=== PATIENT | male | born 1950 | race Caucasian/White ===

== ENCOUNTER 2016-09-06 07:43 | Day surgery (SDC) | payer BC ==
[2016-09-06] MEDS: Lactated Ringers 1,000 ML IV SCH ×3 (08:39→18:38)
[2016-09-06] MEDS ORDERED: Ketorolac 30 MG/ML SDV IVPUSH ONE (09:00)
[2016-09-06] MEDS ORDERED: Dexamethasone 4 MG/ML 5 ML MDV IVPUSH ONE (09:00)
[2016-09-06] MEDS ORDERED: Ondansetron 4 MG/2 ML SDV IVPUSH ONE (09:00)
[2016-09-06] MEDS ORDERED: HYDROmorphone 2 MG/ML SDV IV ONE (09:00)
[2016-09-06] MEDS ORDERED: Lactated Ringers 1,000 ML IV ONE (09:00)
[2016-09-06] MEDS ORDERED: fentaNYL 100 MCG/2 ML SDV IV ONE (09:00)
[2016-09-06] MEDS ORDERED: Midazolam 1 MG/ML 2 ML SDV IV ONE (09:00)
[2016-09-06] MEDS ORDERED: Rocuronium 50 MG/5 ML Vial IV ONE (09:00)
[2016-09-06] MEDS ORDERED: Succinylcholine 200 MG/10 ML MDV IV ONE (09:00)
[2016-09-06] MEDS ORDERED: Neostigmine Methylsulfate 1 MG/ML 5 ML Syringe IV ONE (09:00)
[2016-09-06] MEDS ORDERED: ceFAZolin 2 GM in Sodium Chloride 0.9% 100 ML IV ONE (09:00)
[2016-09-06] MEDS ORDERED: Propofol 200 MG/20 ML SDV IV ONE (09:00)
[2016-09-06] MEDS ORDERED: Lidocaine 1% with EPINEPHrine 1:100,000 20 ML MDV INFILT ONE (09:39)
[2016-09-06] MEDS ORDERED: Bupivacaine 0.5% 30 ML SDV INFILT ONE (09:40)
[2016-09-06] MEDS ORDERED: fentaNYL 100 MCG/2 ML SDV IVPUSH PRN ×2 (10:10→10:15)
[2016-09-06] MEDS ORDERED: Promethazine 6.25 MG in Sodium Chloride 0.9% 50 ML IV PRN (10:10)
[2016-09-06] MEDS ORDERED: HYDROmorphone 2 MG/ML SDV IVPUSH PRN (10:10)
--- NOTE | 2016-09-06 10:32 | PCM.OPNOTE ---
- General Post-Op/Procedure Note Date of Surgery/Procedure: 09/06/16 Operative Procedure(s): incisional hernia repair Findings: ventral hernias multiple punctate lesions Pre Op Diagnosis: incisional hernia Post-Op Diagnosis: Same Anesthesia Technique: General ET tube, Local (9 ml 1 % lido with epi/0.5% marcaine) Primary Surgeon: Corbin Almaraz Anesthesia Provider: Gordo Mckeon Pathology: abd wall EBL in mLs: 10 Complications: None Condition: Good Free Text/Narrative:: see dictation
[2016-09-06] MEDS ORDERED: Morphine 4 MG/ML Syringe IVPUSH PRN (10:42)
[2016-09-06] MEDS ORDERED: Ondansetron 4 MG/2 ML SDV IVPUSH PRN (11:59)
[2016-09-06] MEDS: Acetaminophen/HYDROcodone 325-5 MG Tab PO PRN ×2 (12:18→17:29)
--- NOTE | 2016-09-06 14:30 | OR ---
DATE OF OPERATION: 09/06/2016 SURGEON: Corbin Almaraz MD PROCEDURE PERFORMED: Incisional hernia repair. PREOPERATIVE DIAGNOSIS: Incisional hernia. POSTOPERATIVE DIAGNOSIS: Incisional hernia. INDICATIONS FOR PROCEDURE: This is a 66-year-old white male who was referred with a small reducible hernia in the area of the umbilicus. This appears to be an incisional hernia. The patient had a history of a ruptured appendix, which was removed via midline incision and due to the infection had delayed primary closure. Has a wide open wound with covered fascia over the skin as well as a small hernia down in the right lower quadrant. He was offered and accepted repair. FINDINGS: The patient's observable hernia was approximately 1 cm in diameter, however, along the lateral edge of the right side, there were several small Danish cheese-like lesions. The hernia itself was repaired with a 13.8 x [address] hernia patch, reference number [id number], lot number [id number], with an expiration date of 07/06/2018. Total of 9 mL of a 1:1 mixture of 1% lidocaine with epinephrine and 0.5% Marcaine was used to infiltrate our incision. DESCRIPTION OF PROCEDURE: After an excellent general anesthetic was administered, the patient was prepped and draped in the usual sterile manner. 9 mL of a 1:1 mixture of 1% lidocaine with epinephrine and 0.5% Marcaine was used to infiltrate the entire edge of the old incision sites. We started at the level of the palpable incisional hernia, where an incision was made just medial to the hernia edge. Careful dissection was carried out, and the umbilicus was mobilized. Palpable defect was identified, and the hernia sac was dissected free. On inserting the finger into the anterior abdominal wall, there were some very minor adhesions, and we could feel some defects. At this point, I made an incision circumferentially around the previous incision site and then starting superiorly, we excised the skin and scar tissue off the anterior abdominal wall and passed the specimen off the field. The midline scar tissue/fascia was then incised. The adhesed omentum was then taken down with a LigaSure and gave us a nice flat smooth surface on which to elicit our repair. Again, two additional hernias were noted as well on the right side and then a small hernia was noted on the left. We did at this time also mobilize the skin and subcu fat off the fascia to aid in closure. The upper half of the incision was then closed with a running #1 Prolene to reapproximate the fascia. The hernia patch was then inserted and then tacked to the anterior abdominal wall using a Stat Tacker superiorly and inferiorly. Then, the inferior aspect of the incision was closed with a running #1 Prolene as well. The abdominal wound was then irrigated. The subcu fat was then approximated with a running 3-0 Vicryl. This was done after tacking the umbilicus to the anterior abdominal wall with a [id number] 0 Vicryl. [place] were used to then close the skin. Needle, sponge, and instrument counts were reported as correct. The patient was taken to recovery room in good condition having tolerated the procedure well. /[id number] /CHANTALL
[2016-09-06] MEDS: Ketorolac 30 MG/ML SDV IVPUSH SCH ×2 (15:43→21:32)
[2016-09-06] MEDS ORDERED: Acetaminophen/HYDROcodone 325-5 MG Tab PO PRN (17:56)
[2016-09-07] MEDS: Lactated Ringers 1,000 ML IV SCH (02:44)
[2016-09-07] MEDS: Ketorolac 30 MG/ML SDV IVPUSH SCH ×2 (03:59→09:39)
[2016-09-07 07:18] VITALS: BP 134/86
--- NOTE | 2016-09-07 09:19 | PCM.SURGPN ---
- General Info Date of Service: 09/07/16 Date of Surgery/Procedure: 09/06/16 POD#: 1 Post-Op Diagnosis: incisional hernia Functional Status: Reports: pain controlled, tolerating diet, ambulating, urinating. Denies: new symptoms - Review of Systems Pulmonary: Reports: no symptoms Cardiovascular: Reports: No Symptoms Gastrointestinal: Reports: Abdominal pain Skin: Reports: no symptoms - Patient Data Vitals - most recent: Last Vital Signs Temp 36.8 C 09/07/16 07:05 Pulse 75 09/07/16 07:05 Resp 20 09/07/16 07:05 BP 134/86 09/07/16 07:05 Pulse Ox 94 L 09/07/16 07:05 Weight - most recent: 90.718 kg I&O - last 24 hours: Intake & Output 09/06/16 09/07/16 09/07/16 22:59 06:59 14:59 Intake Total 1399 1220 Balance 1399 1220 Med Orders - Current: Current Medications Hydrocodone Bitart/Acetaminophen ([place] 325-5 Mg) 2 tab PO Q4H PRN PRN Reason: Pain Last Admin: 09/06/16 18:49 Dose: 1 tab Lactated Ringer's (Ringers, Lactated) 1,000 mls @ 125 mls/hr IV ASDIRECTED [facility] Last Admin: 09/07/16 02:44 Dose: 125 mls/hr Ketorolac Tromethamine (Toradol) 30 mg IVPUSH Q6H [facility] Stop: 09/11/16 14:01 Last Admin: 09/07/16 03:59 Dose: 30 mg Morphine Sulfate (Morphine) 3 mg IVPUSH Q4H PRN PRN Reason: Chest Pain Last Admin: 09/06/16 12:16 Dose: 3 mg Ondansetron HCl (Zofran) 4 mg IVPUSH Q6H PRN PRN Reason: Nausea/Vomiting Discontinued Medications Hydrocodone Bitart/Acetaminophen ([place] 325-5 Mg) 1 tab PO Q4H PRN PRN Reason: Pain Last Admin: 09/06/16 17:29 Dose: 1 tab Bupivacaine HCl (Marcaine 0.5%) 10 ml INFILT .STK-MED ONE Stop: 09/06/16 09:41 Last Admin: 09/06/16 09:40 Dose: 10 ml Fentanyl (Sublimaze) 25 mcg IVPUSH Q5M PRN PRN Reason: Pain Stop: 09/06/16 11:16 Fentanyl (Sublimaze) 50 mcg IVPUSH Q5M PRN PRN Reason: Pain Stop: 09/06/16 11:16 Hydromorphone HCl (Dilaudid) 0.2 mg IVPUSH Q10M PRN PRN Reason: Pain (severe 7-10) Stop: 09/06/16 11:16 Cefazolin Sodium 2 gm/ Sodium (Chloride) 100 mls @ 200 mls/hr IV ONETIME ONE Stop: 09/06/16 09:29 Last Admin: 09/06/16 09:07 Dose: 200 mls/hr Promethazine HCl 6.25 mg/ (Sodium Chloride) 50.25 mls @ 200 mls/hr IV Q4H PRN PRN Reason: Nausea/Vomiting Stop: 09/06/16 11:16 Lidocaine/Epinephrine (Xylocaine 1% With Epinephrine 1:100,000) 10 ml INFILT .STK-MED ONE Stop: 09/06/16 09:40 Last Admin: 09/06/16 09:39 Dose: 10 ml - Exam Wound/Incisions: other (some bleeding along skin edge. superfical with removal of bandage. lower abd bleeding has stopped. ) General: alert, oriented, cooperative, no acute distress Lungs: Clear to auscultation, Normal respiratory effort Cardiovascular: Regular Rate, Regular Rhythm Abdomen: bowel sounds present, soft, no distension - Problem List & Annotations (1) Incisional hernia SNOMED Code(s): 253428294 Code(s): K43.2 - INCISIONAL HERNIA WITHOUT OBSTRUCTION OR GANGRENE Status: Resolved Current Visit: Yes Qualifiers: Obstruction and gangrene presence: without obstruction or gangrene Qualified Code(s): K43.2 - Incisional hernia without obstruction or gangrene - Problem List Review Problem List Initiated/Reviewed/Updated: Yes - My Orders Last 24 Hours: Active Orders 24 hr Category Date Time Status Ambulate [RC] Q3HR Care 09/06/16 11:59 Active IS (RT) [RT Incentive Spirometry] [RC] Q2HWA Care 09/06/16 11:59 Active Ready for Discharge [RC] PER UNIT ROUTINE Care 09/07/16 09:16 Ordered Vital Signs [RC] 04,08,12,16,20,00 Care 09/06/16 11:59 Active Clear Liquid Diet [DIET] Diet 09/06/16 Lunch Ordered Acetaminophen/HYDROcodone [[place] 325-5 MG] Med 09/06/16 17:56 Active 2 tab PO Q4H PRN Ketorolac [Toradol] Med 09/06/16 16:00 Active 30 mg IVPUSH Q6H Morphine Med 09/06/16 10:42 Active 3 mg IVPUSH Q4H PRN Ondansetron [Zofran] Med 09/06/16 11:59 Active 4 mg IVPUSH Q6H PRN Medication Orders Hydrocodone Bitart/Acetaminophen ([place] 325-5 Mg) 2 tab PO Q4H PRN PRN Reason: Pain Last Admin: 09/06/16 18:49 Dose: 1 tab Lactated Ringer's (Ringers, Lactated) 1,000 mls @ 125 mls/hr IV ASDIRECTED [facility] Last Admin: 09/07/16 02:44 Dose: 125 mls/hr Infusion: 09/07/16 02:38 Dose: 125 mls/hr Admin: 09/06/16 18:38 Dose: 125 mls/hr Infusion: 09/06/16 18:38 Dose: 125 mls/hr Admin: 09/06/16 10:53 Dose: 125 mls/hr Infusion: 09/06/16 10:53 Dose: 125 mls/hr Admin: 09/06/16 08:39 Dose: 125 mls/hr Ketorolac Tromethamine (Toradol) 30 mg IVPUSH Q6H [facility] Stop: 09/11/16 14:01 Last Admin: 09/07/16 03:59 Dose: 30 mg Admin: 09/06/16 21:32 Dose: 30 mg Admin: 09/06/16 15:43 Dose: 30 mg Morphine Sulfate (Morphine) 3 mg IVPUSH Q4H PRN PRN Reason: Chest Pain Last Admin: 09/06/16 12:16 Dose: 3 mg Ondansetron HCl (Zofran) 4 mg IVPUSH Q6H PRN PRN Reason: Nausea/Vomiting - Assessment Assessment (Free Text/Narrative):: ready for discharge. - Plan Plan (Free Text/Narrative):: to home see discharge instructions.
== END 2016-09-07 10:05 | disposition home or self-care (01) ==
LOC: FB.SDS 07:43 → FB.MS 11:16 → FB.SDS 09-07 10:05
PROVIDERS: ATTEND Surgery
DX: K43.2 Incisional hernia without obstruction or gangrene (principal); N40.1 Benign prostatic hyperplasia with lower urinary tract symptoms; E78.5 Hyperlipidemia, unspecified; Z79.82 Long term (current) use of aspirin; Z79.899 Other long term (current) drug therapy; K21.9 Gastro-esophageal reflux disease without esophagitis; G47.30 Sleep apnea, unspecified; Z90.49 Acquired absence of other specified parts of digestive tract; Z98.890 Other specified postprocedural states; F17.210 Nicotine dependence, cigarettes, uncomplicated
CPT/HCPCS: 49560; 94150; A9270; C1781; J0131; J0330; J0690; J1100; J1170; J1885; J2250; J2270; J2405; J2704; J3010; J7030; J7120; 88302